=== PATIENT | female | born 1930 | race African-American/Black ===

== ENCOUNTER → 2021-02-21 | Outpatient (CLI) | payer MEDICARE ==
--- NOTE | 2021-02-22 15:14 | RAD ---
Bilateral lower extremity arterial duplex study 02/21/2021 CLINICAL HISTORY: Nonpalpable foot pulses bilaterally. TECHNIQUE: Using a combination real-time ultrasound imaging and color-flow and pulse Doppler imaging techniques, duplex evaluation of the major arterial structures of both lower extremities was performe d. Multiple images were obtained. FINDINGS: Mild to moderate atheromatous/atherosclerotic plaque formation is seen scattered throughout the major arterial structures of both lower extremities. Monophasic arterial waveforms are seen thro ughout. The peak systolic velocities within the right superficial femoral artery are diminished varyi ng from 18 to 52 cm per second. The peak systolic velocity proximal to this is 125 cm/s within the ri ght common femoral artery. These findings could reflect a stenosis in the region of the right common femoral artery/proximal right superficial femoral artery; however, none is visualized definitely by u ltrasound. The right peroneal artery is not visualized and may be occluded. The proximal/mid left sup erficial femoral artery appears to be occluded. The peak systolic velocity within the distal left sup erficial femoral artery is elevated measuring 150.9 cm/s. When compared to the real-time and color-fl ow images in this area there appears to be an underlying 50 percent stenosis. No additional area of s tenosis or occlusion is seen. IMPRESSION: Mild to moderate atheromatous/atherosclerotic plaque formation is seen scattered througho ut the major arterial structures of both lower extremities. The right peroneal artery is not visualiz ed and may be occluded. The proximal/mid left superficial artery appears to be occluded. 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 Electronically signed by: Solitario Richardson MD (02/22/2021 3:11 PM) [id number]
== END ==
LOC: US 14:39
PROVIDERS: ATTEND Podiatrist
DX: I70.203 Unspecified atherosclerosis of native arteries of extremities, bilateral legs (principal)
CPT/HCPCS: 93925

== ENCOUNTER 2021-12-09 20:38 | Emergency (ER) | payer MEDICARE ==
[~2021-12-09] VITALS: Ht 157.5 cm; Wt 75.0 kg
[2021-12-09 21:00] VITALS: BP 177/74
[2021-12-09] MEDS ORDERED: OXYMETAZOLINE 0.05% NASAL SPRAY 30ML BOTTLE. NS ONE (21:30)
[2021-12-09] MEDS ORDERED: MUPI1OIN6 TP (21:55)
[2021-12-09] MEDS ORDERED: OXYM30SP25 NS (21:55)
--- NOTE | 2021-12-09 21:56 | PHYS DOC ---
Adult General Chief Complaint Chief Complaint: NOSEBLEED HPI HPI Patient is an 89-year-old female with a history of hypertension, on an aspirin only as a blood thinner. She [place] at home in the community. She presents for evaluation of mild left-sided anterior epistaxis with onset about an hour prior to arrival. She has not tried any direct pressure. No other symptoms and in particular no lightheadedness, shortness of breath, or difficulty breathing. She is pleasantly and appropriately interactive and in no acute distress with appropriate vital signs upon initial evaluation here in the emergency department. Review of Systems Review of Systems A 12 point review of systems was completed and was negative except where noted in HPI above. Current Medications Current Medications Current Medications Medications (Trade) Dose Ordered Sig/Che Start Time Stop Time Status Last Admin Dose Admin Oxymetazoline HCl (Afrin) 2 spray 1X ONCE 12/09/21 21:30 12/09/21 21:31 DC 12/09/21 21:18 2 SPRAY Allergies Allergies Allergies Coded Allergies Type Severity Reaction Last Updated Verified No Known Drug Allergies 12/09/21 No Physical Exam Physical Exam 89-year-old female appearing nontoxic and in no acute distress. Head is normocephalic and atraumatic. Neck is supple and nontender. Oropharynx is moist. There is mild oozing left-sided anterior epistaxis. Unable to visualize a clear source. There is a normal S1 and S2 without rubs or gallops and capillary refill is appropriate, less than 2 seconds globally. Abdomen is soft, nontender nondistended. Skin is warm and dry without cyanosis, clubbing or edema. Psychiatrically, the patient demonstrates appropriate mood and affect and is alert. Evaluation of the extremities reveals BUEs and BLEs neurovascular intact distally with strength out of five, sensation intact light touch in all nerve distributions, radial, DP and PT pulses 2+ and equal bilaterally, capillary refill less than 2 seconds, hands and feet warm and well-perfused. No dependent peripheral edema distally. No calf tenderness or swelling bilaterally. Homans test negative bilaterally. EKG EKG [] Course & Med Decision Making Course & Med Decision Making Mild oozing left-sided anterior epistaxis resolved successfully with Afrin followed by direct pressure for 15 minutes. Patient has been observed for 45 minutes subsequent to application of direct pressure and she has had no rebleeding. She is resting comfortably in no distress. Will discharge home with Afrin to follow-up closely with primary care. Patient draws attention to a tiny sore on the lateral aspect of her distal left naris internally. This is without fluctuance. It does not appear to have been the source of bleeding. She request something to treat this. We will prescribe some mupirocin. Patient is to follow-up with primary care in the next 1 to 2 days and understands that if she feels worse instead of better or develops other new symptoms of concern that she should return to the emergency department right away for reevaluation. All questions are answered. Dragon Disclaimer Dragon Disclaimer This electronic medical record was generated, in whole or in part, using a voice recognition dictation system. Departure Departure Impression: Primary Impression: Acute anterior epistaxis Disposition: HOME / SELF CARE / HOMELESS Condition: IMPROVED Referrals: TORRI PRICE (PCP) Patient Instructions: Nosebleed Additional Instructions: Follow-up very closely with your primary care doctor in the office in the next 1 to 2 days for reevaluation of your symptoms and a discussion of next best steps in care. If nosebleed recurs, blow your nose to evacuate blood and clot, then spray Afrin in the affected nostril several times. Then, apply good strong direct pressure as shown to your nose for 20 minutes. If bleeding continues, repeat the entire procedure at least one more time. For the small sore in your left nostril, wait a few days for the bleeding spot to heal and then begin treating with mupirocin ointment twice a day. Return to the emergency department right away for worsening symptoms of any kind or with any other new symptoms of concern. Scripts Mupirocin (Mupirocin) 1 Gm Oin.pf.mariluz 1 MARILUZ TP BID for 5 Days, #15 GM 0 Refills apply to affected area(s) Prov: RACHAEL TOLEDO MD 12/09/21 Oxymetazoline Hcl (AFRIN) 30 Ml [place] 2 SPR NS QID for nosebleed, #1 SPRAY Prov: RACHAEL TOLEDO MD 12/09/21 RACHAEL TOLEDO MD Dec 09, 2021 21:56
== END 2021-12-09 22:15 | disposition home or self-care (01) ==
LOC: ER 20:38
DX: R04.0 Epistaxis (principal); I10 Essential (primary) hypertension
CPT/HCPCS: 99283